=== PATIENT | female | born 1965 | race Hispanic/Latino ===

== ENCOUNTER 2021-10-16 08:26 | Outpatient (CLI) | payer BC | END 2021-10-16 08:27 | disposition home or self-care (01) | LOC: BICCT 08:26 | PROVIDERS: ATTEND Internal Medicine Gastroenterology | DX: R10.13 Epigastric pain (principal); K57.30 Diverticulosis of large intestine without perforation or abscess without bleeding; Z80.0 Family history of malignant neoplasm of digestive organs | CPT/HCPCS: 74177 ==